=== PATIENT | female | born 1975 | race Caucasian/White ===

== ENCOUNTER 2018-05-29 10:00 | Emergency (ER) | payer OTHER, MEDICAID ==
[2018-05-29] MEDS: ACETAMINOPHEN 500 MG TAB PO (10:33)
[2018-05-29] MEDS: KETOROLAC 60 MG INJ IM (10:50)
== END 2018-05-29 11:15 | disposition home or self-care (01) ==
LOC: FTE 10:00
DX: J02.9 Acute pharyngitis, unspecified (principal); I10 Essential (primary) hypertension
CPT/HCPCS: 81025; 96372; 99284-25